=== PATIENT | male | born 1985 | race Caucasian/White ===

== ENCOUNTER 2016-12-13 22:16 | Emergency (ER) | payer SELFPAY ==
[~2016-12-13] VITALS: Ht 185.4 cm; Wt 86.4 kg
[2016-12-13 22:21] VITALS: BP 129/60; PULSE 85; RESP 16; TEMP 98.4; O2SAT 99
[2016-12-13] MEDS ORDERED: SODIUM CHLOR 0.9% 1000 ML INJ 1,000 ML IV ONE (22:46)
--- NOTE | 2016-12-13 22:54 | PD ---
HPI Chief Complaint: OD/ Ingestion Time Seen by Provider: 22:46 Travel History International Travel<30 days: No Contact w/Intl Traveler<30days: No Traveled to known affect area: No History of Present Illness HPI 31-year-old male presents to the emergency department as a Dexter act after intentional ingestion of 5 warm and drinking alcohol. Patient denies other concerns or complaints. No recent injury or fall. No altered mentation. Patient is not diabetic. Patient reportedly found a 5 metformin in a hotel room and looked up what type of medicine they were and then ingested the medication. Patient was sent here from [facility]. Patient reports that he ingested the metformin early on Saturday morning around 7 AM. [facility] Past Medical History Narrative Medical Anxiety depression and schizophrenia oppositional defiant disorder; tobacco use alcohol use substance use Anxiety: Yes Depression: Yes Medical other: Yes (oppisitional def. disorder, conduct disorder) Schizophrenia: Yes Past Surgical History Surgical History: No Previous Surgery Social History Alcohol Use: Yes Tobacco Use: Yes Substance Use: Yes (mj ) Allergies-Medications (Allergen,Severity, Reaction): Coded Allergies: Amoxicillin (Verified Allergy, Intermediate, 12/13/16) rash Reported Meds & Prescriptions Reported Meds & Active Scripts Active No Active Prescriptions or Reported Medications Review of Systems Except as stated in HPI: all other systems reviewed are Neg General / Constitutional: No: Fever HENT: No: Congestion Cardiovascular: No: Chest Pain or Discomfort Respiratory: No: Shortness of Breath Gastrointestinal: No: Vomiting, Abdominal Pain Genitourinary: No: Flank Pain Musculoskeletal: No: Myalgias, Arthralgias Skin: No Rash Neurologic: No: Weakness, Dizziness, Syncope, Focal Abnormalities, Coordination Problem Psychiatric: Positive: Depression, Suicidal Ideations Endocrine: No: Heat Intolerance Hematologic/Lymphatic: No: Easy Bruising Physical Exam Narrative GENERAL: Well-developed well-nourished male in no acute distress no respiratory distress; GCS 15 SKIN: Warm and dry. HEAD: Atraumatic. Normocephalic. EYES: Pupils equal and round. No scleral icterus. No injection or drainage. ENT: No nasal bleeding or discharge. Mucous membranes pink and moist. NECK: Trachea midline. No JVD. CARDIOVASCULAR: Regular rate and rhythm. RESPIRATORY: No accessory muscle use. Clear to auscultation. Breath sounds equal bilaterally. GASTROINTESTINAL: Abdomen soft, non-tender, nondistended. Hepatic and splenic margins not palpable. MUSCULOSKELETAL: Extremities without clubbing, cyanosis, or edema. No obvious deformities. NEUROLOGICAL: Awake and alert. No obvious cranial nerve deficits. Motor grossly within normal limits. Five out of 5 muscle strength in the arms and legs. Normal speech. PSYCHIATRIC: Appropriate mood and affect; insight and judgment normal. Data Data Last Documented VS Vital Signs Date Time Temp Pulse Resp B/P Pulse Ox O2 Delivery O2 Flow Rate FiO2 12/13/16 22:21 98.4 85 16 129/60 99 Orders Electrocardiogram (12/13/16 22:46) Complete Blood Count With Diff (12/13/16 22:46) Comprehensive Metabolic Panel (12/13/16 22:46) Prothrombin Time / Inr (Pt) (12/13/16 22:46) Act Partial Throm Time (Ptt) (12/13/16 22:46) Urinalysis - C+S If Indicated (12/13/16 22:46) Chest, Single Ap (12/13/16 22:46) Blood Glucose (12/13/16 22:46) Iv Access Insert/Monitor (12/13/16 22:46) Ecg Monitoring (12/13/16 22:46) Oximetry (12/13/16 22:46) Sodium Chloride 0.9% Flush (Ns Flush) (12/13/16 23:00) Sodium Chlor 0.9% 1000 Ml Inj (Ns 1000 M (12/13/16 22:46) Drug Screen, Random Urine (12/13/16 22:46) Alcohol (Ethanol) (12/13/16 22:46) Salicylates (Aspirin) (12/13/16 22:46) Tylenol (Acetaminophen) (12/13/16 22:46) Labs Laboratory Tests Test 12/13/16 12/14/16 23:00 02:00 White Blood Count 7.1 TH/MM3 Red Blood Count 4.33 MIL/MM3 Hemoglobin 13.3 GM/DL Hematocrit 39.8 % Mean Corpuscular Volume 91.7 FL Mean Corpuscular Hemoglobin 30.8 PG Mean Corpuscular Hemoglobin 33.5 % Concent Red Cell Distribution Width 13.5 % Platelet Count 216 TH/MM3 Mean Platelet Volume 9.9 FL Neutrophils (%) (Auto) 54.3 % Lymphocytes (%) (Auto) 32.6 % Monocytes (%) (Auto) 8.4 % Eosinophils (%) (Auto) 3.5 % Basophils (%) (Auto) 1.2 % Neutrophils # (Auto) 3.9 TH/MM3 Lymphocytes # (Auto) 2.3 TH/MM3 Monocytes # (Auto) 0.6 TH/MM3 Eosinophils # (Auto) 0.2 TH/MM3 Basophils # (Auto) 0.1 TH/MM3 CBC Comment DIFF FINAL Differential Comment Prothrombin Time 11.0 SEC Prothromb Time International 1.0 RATIO Ratio Activated Partial 26.1 SEC Thromboplast Time Sodium Level 144 MEQ/L Potassium Level 3.5 MEQ/L Chloride Level 108 MEQ/L Carbon Dioxide Level 28.7 MEQ/L Anion Gap 7 MEQ/L Blood Urea Nitrogen 10 MG/DL Creatinine 0.75 MG/DL Estimat Glomerular Filtration 122 ML/MIN Rate Random Glucose 91 MG/DL Calcium Level 8.3 MG/DL Total Bilirubin 0.2 MG/DL Aspartate Amino Transf 13 U/L (AST/SGOT) Alanine Aminotransferase 14 U/L (ALT/SGPT) Alkaline Phosphatase 70 U/L Total Protein 7.0 GM/DL Albumin 3.5 GM/DL Salicylates Level 3.6 MG/DL Acetaminophen Level LESS THAN 2.0 MCG/ML Ethyl Alcohol Level 62 MG/DL Urine Color YELLOW Urine Turbidity CLEAR Urine pH 6.5 Urine Specific [place] 1.021 Urine Protein TRACE mg/dL Urine Glucose (UA) NEG mg/dL Urine Ketones NEG mg/dL Urine Occult Blood NEG Urine Nitrite NEG Urine Bilirubin NEG Urine Urobilinogen 2.0 MG/DL Urine Leukocyte Esterase NEG Urine RBC 1 /hpf Urine WBC 1 /hpf Urine Hyaline Casts 1 /lpf Urine Granular Casts 1 /lpf Urine Mucus FEW /lpf Microscopic Urinalysis Comment CULT NOT INDICATED MDM Medical Decision Making Medical Screen Exam Complete: Yes Emergency Medical Condition: Yes Medical Record Reviewed: Yes Interpretation(s) EKG: Normal sinus rhythm rate 80 QS septally in V1 V2 age-indeterminate no acute ST elevation or injury pattern change noted Serum alcohol: 62, elevated Salicylate level 3.6, not elevated Urine drug screen: Acetaminophen level: Less than 2, not elevated Last Impressions Chest X-Ray 12/13/16 1026 Signed Impressions: Service Date/Time: December 23:10 - CONCLUSION: No acute disease. Kel Garcia MD CBC & BMP Diagram 12/13/16 23:00 Vital Signs Date Time Temp Pulse Resp B/P Pulse Ox O2 Delivery O2 Flow Rate FiO2 12/13/16 22:21 98.4 85 16 129/60 99 Differential Diagnosis Intentional overdose, suicidal ideation, mood disorder, polysubstance ingestion , metformin overdose Narrative Course Well-developed well-nourished male in no acute distress no respiratory distress Dexter act reportedly after intentionally taking 5 metformin and drinking alcohol with suicidal ideation; specimens collected and sent for resulting; EKG reveals no acute injury pattern change QT prolongation or ectopy. Patient waiting for lab results remains cooperative voicing no concerns or complaints Lab values resulted and patient is medically cleared for psych screen Diagnosis Primary Impression: Depression Additional Impression: Suicidal ideation Scripts No Active Prescriptions or Reported Meds Elyse Ruiz MD December 13, 2016 22:54
[2016-12-13] MEDS ORDERED: SODIUM CHLORIDE 0.9% FLUSH 10 ML FLUSH IVF PRN (23:00)
[2016-12-13 23:17] LABS: AUTOMATED NEUTROPHIL # 3.9 TH/MM3 (1.8-7.7); BASOPHIL # 0.1 TH/MM3 (0-0.2); BASOPHIL % 1.2 % (0.0-2.0); EOSINOPHIL # 0.2 TH/MM3 (0-0.4); EOSINOPHIL % 3.5 % (0.0-4.0); HEMATOCRIT 39.8 % (39.0-51.0); HEMO FLAGS DIFF FINAL; LYMPH % 32.6 % (9.0-44.0); LYMPHOCYTE # 2.3 TH/MM3 (1.0-4.8); MEAN CELL VOLUME 91.7 FL (80.0-100.0); MEAN CORPUSCULAR HEMOGLOBIN 30.8 PG (27.0-34.0); MEAN CORPUSCULAR HGB CONC 33.5 % (32.0-36.0); MONO % 8.4 % (0.0-8.0); NEUT % 54.3 % (16.0-70.0); PLATELET COUNT 216 TH/MM3 (150-450); RED BLOOD COUNT 4.33 MIL/MM3 (4.50-5.90); RED CELL DISTRIBUTION WIDTH 13.5 % (11.6-17.2); WHITE BLOOD COUNT 7.1 TH/MM3 (4.0-11.0)
[2016-12-13 23:30] LABS: APTT (PATIENT) 26.1 SEC (24.3-30.1)
[2016-12-13 23:32] LABS: ANION GAP 7 MEQ/L (5-15)
[2016-12-13 23:35] LABS: ACETAMINOPHEN LESS THAN 2.0 MCG/ML (10.0-30.0); ALKALINE PHOSPHATASE 70 U/L (45-117); ALT (GPT) 14 U/L (12-78); AST (GOT) 13 U/L (15-37); BICARBONATE 28.7 MEQ/L (21.0-32.0); BLOOD UREA NITROGEN 10 MG/DL (7-18); CHLORIDE 108 MEQ/L (98-107); GLOMERULAR FILTRATION RATE 122 ML/MIN (>89); POTASSIUM 3.5 MEQ/L (3.5-5.1); SODIUM (NA) 144 MEQ/L (136-145); TOTAL BILIRUBIN ADULT 0.2 MG/DL (0.2-1.0)
--- NOTE | 2016-12-14 00:15 | RADRPT ---
EXAM DATE/TIME: 12/13/2016 23:10 [place] COMPARISON: No previous studies available for comparison. INDICATIONS : Syncopal episode and cough. MEDICAL HISTORY : None. SURGICAL HISTORY : None. ENCOUNTER: Initial ACUITY: 1 day PAIN SCORE: 0/10 LOCATION: chest FINDINGS: A single view of the chest demonstrates the lungs to be symmetrically aerated without evidence of mas s, infiltrate or effusion. The cardiomediastinal contours are unremarkable. Osseous structures are intact. CONCLUSION: No acute disease. Kel Garcia MD on December 14, 2016 at 0:14 Board Certified Radiologist. This report was verified electronically.
[2016-12-14 02:43] LABS: BLOOD, URINE NEG (NEG); COMMENT (UR) CULT NOT INDICATED; CULTURE IF INDICATED CULT NOT INDICATED; GLUCOSE,URINE NEG (NEG); GRANULAR CAST, URINE 1 /lpf; HYALINE CAST, URINE 1 /lpf (RARE); KETONE, URINE NEG (NEG); MUCUS URINE FEW /lpf (OCC); NITRITE,URINE NEG (NEG); PH, URINE 6.5 (5.0-8.5); URINE COLOR YELLOW (YELLW/STRAW)
[2016-12-14 08:56] VITALS: BP 127/60; PULSE 74; RESP 18; TEMP 98.1; O2SAT 98
--- NOTE | 2016-12-14 13:24 | PD ---
Data Data Last Documented VS Vital Signs Date Time Temp Pulse Resp B/P Pulse Ox O2 Delivery O2 Flow Rate FiO2 12/14/16 08:56 98.1 74 18 127/60 98 12/14/16 07:11 Room Air Orders Electrocardiogram (12/13/16 22:46) Complete Blood Count With Diff (12/13/16 22:46) Comprehensive Metabolic Panel (12/13/16 22:46) Prothrombin Time / Inr (Pt) (12/13/16 22:46) Act Partial Throm Time (Ptt) (12/13/16 22:46) Urinalysis - C+S If Indicated (12/13/16 22:46) Chest, Single Ap (12/13/16 22:46) Blood Glucose (12/13/16 22:46) Iv Access Insert/Monitor (12/13/16 22:46) Ecg Monitoring (12/13/16 22:46) Oximetry (12/13/16 22:46) Sodium Chloride 0.9% Flush (Ns Flush) (12/13/16 23:00) Sodium Chlor 0.9% 1000 Ml Inj (Ns 1000 M (12/13/16 22:46) Drug Screen, Random Urine (12/13/16 22:46) Alcohol (Ethanol) (12/13/16 22:46) Salicylates (Aspirin) (12/13/16 22:46) Tylenol (Acetaminophen) (12/13/16 22:46) Diet Regular Basic (12/14/16 Breakfast) Labs Laboratory Tests Test 12/13/16 12/14/16 23:00 02:00 White Blood Count 7.1 TH/MM3 Red Blood Count 4.33 MIL/MM3 Hemoglobin 13.3 GM/DL Hematocrit 39.8 % Mean Corpuscular Volume 91.7 FL Mean Corpuscular Hemoglobin 30.8 PG Mean Corpuscular Hemoglobin 33.5 % Concent Red Cell Distribution Width 13.5 % Platelet Count 216 TH/MM3 Mean Platelet Volume 9.9 FL Neutrophils (%) (Auto) 54.3 % Lymphocytes (%) (Auto) 32.6 % Monocytes (%) (Auto) 8.4 % Eosinophils (%) (Auto) 3.5 % Basophils (%) (Auto) 1.2 % Neutrophils # (Auto) 3.9 TH/MM3 Lymphocytes # (Auto) 2.3 TH/MM3 Monocytes # (Auto) 0.6 TH/MM3 Eosinophils # (Auto) 0.2 TH/MM3 Basophils # (Auto) 0.1 TH/MM3 CBC Comment DIFF FINAL Differential Comment Prothrombin Time 11.0 SEC Prothromb Time International 1.0 RATIO Ratio Activated Partial 26.1 SEC Thromboplast Time Sodium Level 144 MEQ/L Potassium Level 3.5 MEQ/L Chloride Level 108 MEQ/L Carbon Dioxide Level 28.7 MEQ/L Anion Gap 7 MEQ/L Blood Urea Nitrogen 10 MG/DL Creatinine 0.75 MG/DL Estimat Glomerular Filtration 122 ML/MIN Rate Random Glucose 91 MG/DL Calcium Level 8.3 MG/DL Total Bilirubin 0.2 MG/DL Aspartate Amino Transf 13 U/L (AST/SGOT) Alanine Aminotransferase 14 U/L (ALT/SGPT) Alkaline Phosphatase 70 U/L Total Protein 7.0 GM/DL Albumin 3.5 GM/DL Salicylates Level 3.6 MG/DL Acetaminophen Level LESS THAN 2.0 MCG/ML Ethyl Alcohol Level 62 MG/DL Urine Color YELLOW Urine Turbidity CLEAR Urine pH 6.5 Urine Specific [place] 1.021 Urine Protein TRACE mg/dL Urine Glucose (UA) NEG mg/dL Urine Ketones NEG mg/dL Urine Occult Blood NEG Urine Nitrite NEG Urine Bilirubin NEG Urine Urobilinogen 2.0 MG/DL Urine Leukocyte Esterase NEG Urine RBC 1 /hpf Urine WBC 1 /hpf Urine Hyaline Casts 1 /lpf Urine Granular Casts 1 /lpf Urine Mucus FEW /lpf Microscopic Urinalysis Comment CULT NOT INDICATED MDM Supervised Visit with [facility]: No Narrative Course Addendum to note that this patient was medically cleared [address] Ruiz. She was under the mistaken thought that this patient was here under a dexter act. He apparently went voluntarily to [facility] where they noted that he was feeling suicidal but sent him here for medical clearance. Dr. Ruiz perform the medical clearance and he is been sitting in the emergency department for the last 10 hours. Now he decides that he signed in voluntarily and would like to go home. So we had the nurse practitioner from psychiatry evaluate.. Angely has spoken with and evaluated this patient. She is cleared him from a psychiatry standpoint. She reports that he is not suicidal nor homicidal and does not need any Dexter act or further psych evaluation and he will therefore be discharged home. Diagnosis Primary Impression: Depression Qualified Code: F32.9 - Depression, unspecified depression type Scripts No Active Prescriptions or Reported Meds Disposition: 01 DISCHARGE HOME Condition: Stable Jorge Hagen MD December 14, 2016 13:24
--- NOTE | 2016-12-14 15:30 | EKG ---
Date Performed: 12/13/2016 Time Performed: 22:25:04 PTAGE: 31 years EKG: Sinus rhythm SEPTAL MYOCARDIAL INFARCTION ABNORMAL ECG NO PREVIOUS TRACING DOCTOR: Darnell Agee Interpretating Date/Time 12/14/2016 15:26:49
== END 2016-12-14 16:59 | disposition home or self-care (01) ==
LOC: NEPC 22:16 → NEPD 12-14 16:59
DX: F32.9 Major depressive disorder, single episode, unspecified (principal); R45.851 Suicidal ideations; R94.31 Abnormal electrocardiogram [ECG] [EKG]; T38.3X2A Poisoning by insulin and oral hypoglycemic [antidiabetic] drugs, intentional self-harm, initial encounter; T51.0X2A Toxic effect of ethanol, intentional self-harm, initial encounter; Z72.0 Tobacco use
CPT/HCPCS: 71010; 80053; 80307; 81001; 85025; 85610; 85730; 93005; 96360; 96361; 99283; J7030